=== PATIENT | female | born 1965 | race Caucasian/White ===

== ENCOUNTER 2021-12-09 10:28 | Emergency (ER) | payer OTHER ==
[~2021-12-09] VITALS: Ht 154.9 cm; Wt 83.1 kg
[2021-12-09 10:50] VITALS: BP 148/60
--- NOTE | 2021-12-09 10:59 | PHYS DOC ---
General Adult EDM: Chief Complaint: SORE THROAT HPI: HPI: Patient is a 56-year-old female who presents to the emergency department for sore throat, nasal drainage, productive cough, sinus pressure and fatigue that started on Wednesday. Patient denies shortness of breath, n/v, sick exposures, fevers. Patient reports that she does have seasonal allergies and she has been taking Zyrtec, Mucinex and Advil. Review of Systems: Review of Systems: Constitutional: see HPI HENT: see HPI Respiratory: see HPI GI: see HPI Allergies: Allergies: Allergies Coded Allergies Type Severity Reaction Last Updated Verified sulfamethoxazole Allergy Unknown 12/09/21 Yes trimethoprim Allergy Unknown 12/09/21 Yes Physical Exam: PE: Constitutional: Well developed, well nourished, no acute distress, non-toxic appearance. [] HENT: Normocephalic, atraumatic, bilateral external ears normal, oropharynx moist, no oral exudates, tonsillar erythema, post nasal drainage noted,uvula midline, no trismus or phonation changes, patient maintaining secretions, maxillary sinus pressure with palpation, nose normal. [] Eyes: PERRL, EOMI, conjunctiva normal, no discharge. [] Neck: Normal range of motion, no tenderness, supple, no stridor. [] Cardiovascular:Heart rate regular rhythm, no murmur [] Lungs & Thorax: Bilateral breath sounds clear to auscultation [] Abdomen: Bowel sounds normal, soft, no tenderness, no masses, no pulsatile masses. [] Skin: Warm, dry, no erythema, no rash. [] Back: No tenderness, normal ROM Extremities: No tenderness, no cyanosis, no clubbing, ROM intact, no edema. [] Neurologic: Alert and oriented X 3, normal motor function, normal sensory function, no focal deficits noted. [] Psychologic: Affect normal, judgement normal, mood normal. [] Current Patient Data: Labs: Laboratory Tests Test 12/09/21 11:02 Influenza Type A (Rapid) Negative Influenza Type B (Rapid) Negative SARS-CoV-2 Antigen (Rapid) Negative Group A Streptococcus Rapid Negative EKG: EKG: [] Radiology/Procedures: Radiology/Procedures: [] Heart Score: C/O Chest Pain: N/A Risk Factors: Risk Factors: DM, Current or recent (<one month) smoker, HTN, HLP, family history of CAD, obesity. Risk Scores: Score 0 - 3: 2.5% MACE over next 6 weeks - Discharge Home Score 4 - 6: 20.3% MACE over next 6 weeks - Admit for Clinical Observation Score 7 - 10: 72.7% MACE over next 6 weeks - Early Invasive Strategies Course & Med Decision Making: Course & Med Decision Making Pertinent Labs and Imaging studies reviewed. (See chart for details) Patient presents to the ER for sore throat, nasal drainage/congestion, productive cough. Work up consisted of strep, covid, influenza testing. Patient is reporting sinus pressure and nasal congestion/drainage, she is tender over her maxillary sinuses. Patients vital signs are stable. Patient will be treated with a steroid she is advised to continue taking her Mucinex and add Flonase. I discussed with patient all findings and diagnostic testing as well as the need to follow-up with PCP for further evaluation and treatment or return to the ER if any new or worsening symptoms. Strict return precautions were also discussed at length. Patient voiced understanding and agreement with the plan. Patient is hemodynamically stable at the time of disposition. Izzy Money Disclaimer: Izzy [employer] Disclaimer: This electronic medical record was generated, in whole or in part, using a voice recognition dictation system. Departure Departure: Impression: Primary Impression: Pharyngitis Qualified Codes: J02.9 - Acute pharyngitis, unspecified Disposition: HOME / SELF CARE / HOMELESS Condition: GOOD Referrals: NON,STAFF (PCP) Patient Instructions: Viral Pharyngitis Additional Instructions: You are seen in the emergency department for sore throat and nasal drainage. You had negative strep, COVID and influenza testing. Continue taking Mucinex and Advil for the pain. You can also add Flonase intranasal steroid. Perform warm salt water gargles at home for sore throat. You are being discharged home with a steroid Dosepak which will help with inflammation of your sinuses. Pleas e increase your fluids as this will thin your secretions. Follow-up with your primary care provider within a week. Return to the emergency department if you develop shortness of breath, difficulty swallowing, high fevers refractory to treatment, intractable nausea or vomiting or any new or worsening concerns. Scripts Methylprednisolone (MEDROL) 4 Mg Tab.ds.pk 1 PKG PO UD for sinus inflammation, #1 PKG 0 Refills Prov: EMERY JOHNSON APRN 12/09/21 EMERY JOHNSON APRN December 09, 2021 10:59
[2021-12-09 11:46] LABS: INFLUENZA A PATIENT NEGATIVE (NEGATIVE); INFLUENZA B PATIENT NEGATIVE (NEGATIVE)
[2021-12-09] MEDS ORDERED: METH4TAB2 PO (11:50)
== END 2021-12-09 12:14 | disposition home or self-care (01) ==
LOC: ER 10:28
DX: J02.9 Acute pharyngitis, unspecified (principal); Z88.2 Allergy status to sulfonamides; Z88.1 Allergy status to other antibiotic agents
CPT/HCPCS: 87070; 87428; 87880; 99283

== ENCOUNTER 2021-12-17 13:00 | Emergency (ER) | payer OTHER ==
[~2021-12-17] VITALS: Ht 154.9 cm; Wt 83.1 kg
[~2021-12-17 13:00] MED LIST: METH4TAB2 PO
[2021-12-17 13:27] VITALS: BP 114/59
--- NOTE | 2021-12-17 13:52 | PHYS DOC ---
Past History Additional Past Medical Histor: SVT Past Surgical History: No Surgical History Alcohol Use: None General Adult EDM: Chief Complaint: SORE THROAT HPI: HPI: 56-year-old female returns emergency room with sore throat. She was seen at this facility about a week ago. Her strep, influenza, and COVID were all negative. She was placed on a steroid which helped with the pain but did not make it go away. She finished this medication 2 days ago and the pain is gotten worse since. It is now very painful and difficult swallow. She has not had a fever at home. Review of Systems: Review of Systems: Constitutional: Denies fever or chills Eyes: Denies change in visual acuity HENT: Sore throat Respiratory: Denies cough or shortness of breath Cardiovascular: Denies chest pain or edema GI: Denies abdominal pain, nausea, vomiting, bloody stools or diarrhea : Denies dysuria Musculoskeletal: Denies back pain or joint pain Integument: Denies rash Neurologic: Denies headache, focal weakness or sensory changes Endocrine: Denies polyuria or polydipsia Lymphatic: Denies swollen glands Psychiatric: Denies depression or anxiety Allergies: Allergies: Allergies Coded Allergies Type Severity Reaction Last Updated Verified sulfamethoxazole Allergy Unknown 12/09/21 Yes trimethoprim Allergy Unknown 12/09/21 Yes Physical Exam: PE: Constitutional: Well developed, well nourished, no acute distress, non-toxic appearance. [] HENT: Normocephalic, atraumatic, bilateral external ears normal, oropharynx dry, no oral exudates, nose normal. Poor visualization of the posterior pharynx. Left tympanic membrane normal. [] Eyes: PERRLA, EOMI, conjunctiva normal, no discharge. [] Neck: Normal range of motion, enlarged, tender left anterior lymph nodes. [] Cardiovascular: Heart rate regular rhythm, no murmur [] Lungs & Thorax: Bilateral breath sounds clear to auscultation [] Abdomen: Bowel sounds normal, soft, no tenderness, no masses, no pulsatile masses. [] Skin: Warm, dry, no erythema, no rash. [] Back: No tenderness, no CVA tenderness. [] Extremities: No tenderness, no cyanosis, no clubbing, ROM intact, no edema. [] Neurologic: Alert and oriented X 3, normal motor function, normal sensory function, no focal deficits noted. [] Psychologic: Affect normal, judgement normal, mood normal. [] Current Patient Data: Vital Signs: Vital Signs Date Time Temp Pulse Resp B/P (MAP) Pulse Ox O2 Delivery O2 Flow Rate FiO2 12/17/21 13:27 98.1 82 18 114/59 (77) 99 Room Air EKG: EKG: [] Radiology/Procedures: Radiology/Procedures: [] Heart Score: C/O Chest Pain: N/A Risk Factors: Risk Factors: DM, Current or recent (<one month) smoker, HTN, HLP, family history of CAD, obesity. Risk Scores: Score 0 - 3: 2.5% MACE over next 6 weeks - Discharge Home Score 4 - 6: 20.3% MACE over next 6 weeks - Admit for Clinical Observation Score 7 - 10: 72.7% MACE over next 6 weeks - Early Invasive Strategies Course & Med Decision Making: Course & Med Decision Making Pertinent Labs and Imaging studies reviewed. (See chart for details) The patient's strep and monotest are negative. Given the duration of the patient's symptoms, and the swelling of her lymph nodes, I will treat her with Keflex for 7 days. She is stable for discharge at this time. Dragon Disclaimer: [email or web address] Disclaimer: This electronic medical record was generated, in whole or in part, using a voice recognition dictation system. Departure Departure: Impression: Primary Impression: Sore throat Disposition: HOME / SELF CARE / HOMELESS Condition: STABLE Referrals: NON,STAFF (PCP) Patient Instructions: Sore Throat, [id number] Scripts Cephalexin (CEPHALEXIN) 500 Mg Tablet 1 TAB PO TID for sore throat for 7 Days, #21 TAB Prov: HUI MONTERROSO DO 12/17/21 HUI MONTERROSO DO December 17, 2021 13:52
[2021-12-17] MEDS ORDERED: IV NORMAL SALINE 1,000ML 1,000 ML IV ONE (14:00)
[2021-12-17 14:33] LABS: BASO % 1 % (0-3); EOS # 0.2 x10^3/uL (0.0-0.7); EOS % 2 % (0-3); HEMATOCRIT 38.8 % (36.0-47.0); HEMOGLOBIN 12.2 g/dL (12.0-15.5); LYMPH # 1.8 x10^3/uL (1.0-4.8); LYMPH % 19 % (24-48); MEAN CORPUSCULAR HEMOGLOBIN 26 pg (25-35); MEAN CORPUSCULAR HGB CONC 31 g/dL (31-37); MEAN CORPUSCULAR VOLUME 82 fL (79-100); MONO # 0.9 x10^3/uL (0.0-1.1); MONO % 10 % (0-9); NEUT # 6.5 x10^3uL (1.8-7.7); NEUT % 69 % (31-73); PLATELET COUNT 263 x10^3/uL (140-400); RED BLOOD COUNT 4.71 x10^6/uL (3.50-5.40); RED CELL DISTRIBUTION WIDTH 15.8 % (11.5-14.5); WHITE BLOOD COUNT 9.5 x10^3/uL (4.0-11.0)
[2021-12-17 14:55] LABS: MONONUCLEOSIS PATIENT NEGATIVE (NEGATIVE)
[2021-12-17 15:06] LABS: CALCIUM 8.6 mg/dL (8.5-10.1); CREATININE 0.5 mg/dL (0.6-1.0); GFR 128.1; POTASSIUM 4.1 mmol/L (3.5-5.1)
[2021-12-17 15:11] LABS: ALBUMIN/GLOBULIN RATIO 0.8 (1.0-1.7); TOTAL BILIRUBIN 0.1 mg/dL (0.2-1.0); TOTAL PROTEIN 6.7 g/dL (6.4-8.2)
[2021-12-17] MEDS ORDERED: CEPH500T PO (15:26)
== END 2021-12-17 15:45 | disposition home or self-care (01) ==
LOC: ER 13:00
DX: J02.9 Acute pharyngitis, unspecified (principal); R13.10 Dysphagia, unspecified; Z88.2 Allergy status to sulfonamides; Z88.1 Allergy status to other antibiotic agents
CPT/HCPCS: 36415; 80053; 85025; 86308; 87070; 87880; 99283